=== PATIENT | male | born 1980 | race Caucasian/White ===

== ENCOUNTER 2017-01-05 17:05 | Emergency (ER) | payer MEDICAID ==
[~2017-01-05] VITALS: Ht 177.8 cm; Wt 95.3 kg
[2017-01-05 17:49] VITALS: BP 131/83
[2017-01-05] MEDS ORDERED: cefTRIAXone SOD 1,000 MG VL IM ONE (18:30)
[2017-01-05] MEDS ORDERED: BACITRACIN-POLYMYXIN B TOPICAL OINT UD TOP ONE (19:29)
== END 2017-01-05 19:36 | disposition home or self-care (01) ==
LOC: ER 17:07
DX: L02.01 Cutaneous abscess of face (principal)
CPT/HCPCS: 96372; 99283; J0696

== ENCOUNTER 2017-01-21 19:02 | Emergency (ER) | payer MEDICAID ==
[~2017-01-21] VITALS: Ht 177.8 cm; Wt 92.1 kg
[2017-01-21 19:09] VITALS: BP 140/80
[2017-01-21] MEDS ORDERED: KETOROLAC TROMETH 60MG/2ML VIAL IM ONE (20:30)
== END 2017-01-21 21:42 | disposition home or self-care (01) ==
LOC: ER 19:14
DX: M54.2 Cervicalgia (principal); M54.9 Dorsalgia, unspecified; M25.531 Pain in right wrist; Z90.89 Acquired absence of other organs; V49.59XA Passenger injured in collision with other motor vehicles in traffic accident, initial encounter; Y93.89 Activity, other specified; Y99.8 Other external cause status; Y92.410 Unspecified street and highway as the place of occurrence of the external cause
CPT/HCPCS: 72125; 72131; 73110; 82962; 96372; 99284; J1885